=== PATIENT | female | born 1990 | race Two or more races ===

== ENCOUNTER 2020-09-19 19:21 | Emergency (ER) | payer MEDICAID ==
[~2020-09-19] VITALS: Ht 160 cm; Wt 81.6 kg
[2020-09-19 19:25] VITALS: BP 162/96
[2020-09-19 20:08] LABS: APPEARANCE,URINE CLEAR; BILIRUBIN, URINE NEGATIVE (NEGATIVE); COLOR,URINE PALE YELLOW; GLUCOSE, URINE (UA) NEGATIVE (NEGATIVE); KETONES,URINE NEGATIVE (NEGATIVE); LEUKOCYTE ESTERASE ,URINE 1+ (NEGATIVE); NITRITE,URINE NEGATIVE (NEGATIVE); PH,URINE 6 (4.5-8.0); PROTEIN,URINE 1+ (NEGATIVE); UROBILINOGEN,URINE NORMAL MG/DL (0.0-1.0)
[2020-09-19] MEDS ORDERED: ACETAMINOPHEN500 M3 ORAL (20:37)
[2020-09-19] MEDS ORDERED: IBUPROFEN400 M1 PO (20:37)
[2020-09-19 20:45] VITALS: BP 148/76
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
== END 2020-09-19 20:45 | disposition home or self-care (01) ==
LOC: EDBD 19:21 → EMR 19:46
DX: M25.511 Pain in right shoulder (principal); V43.62XA Car passenger injured in collision with other type car in traffic accident, initial encounter; Y92.410 Unspecified street and highway as the place of occurrence of the external cause
CPT/HCPCS: 72040; 73030; 81001; 81025; Z7502; 99283